=== PATIENT | male | born 1950 | race Caucasian/White ===

== ENCOUNTER 2016-07-23 09:45 | Day surgery (SDC) | payer OTHER ==
[~2016-07-23] VITALS: Ht 177.8 cm; Wt 100.0 kg
[~2016-07-23 09:45] MED LIST: 0.9% Sodium Chloride 1,000 ML IV SCH; ESOM40CA53 PO; LOVA40TA PO; Sodium Chloride LOK Flush 10 mL Syringe IV PRN; fentaNYL-PF 50 mCg/mL 2 mL Inj IVPUSH PRN
[2016-07-23] MEDS ORDERED: ASPI-973 PO (10:44)
[2016-07-23 10:52] VITALS: BP 150/90; PULSE 73; RESP 14; O2SAT 95
[2016-07-23 12:31] VITALS: BP 128/71; PULSE 69; RESP 14; O2SAT 95
[2016-07-23 12:51] VITALS: BP 120/72; PULSE 77; RESP 14; O2SAT 97
[2016-07-23 12:56] VITALS: BP 120/72; PULSE 77; RESP 14; O2SAT 94
--- NOTE | 2016-07-23 13:38 | ENDO ---
[address] [address] ENDOSCOPY PROCEDURE PATIENT: GODFREY MCCARTHY : 1950 MR#: [id number] ADMIT: 07/23/2016 JOB ID: [id number] PROCEDURE: EGD. INDICATION: Epigastric pain. Patient's ASA classification is II. Mallampati score is II. MEDICATIONS: Versed 7 mg, fentanyl 150 mcg. INSTRUMENT USED: GIF-H180J. PROCEDURE DETAILS: After informed consent was obtained, the patient was brought into the GI suite, where he was placed on oxygen via nasal cannula and monitored with continuous pulse oximeter, telemetry, and blood pressure monitoring. A time-out was performed. Then, he was placed in the left lateral decubitus position and medications were administered for sedation. A bite block was placed. Standard EGD scope was inserted through the bite block and advanced under direct visualization to the second portion of the duodenum without difficulty. FINDINGS: 1. Normal-appearing duodenal bulb, first and second portion. Multiple random biopsies were obtained. 2. Normal-appearing pylorus and antrum. In the gastric body, there were multiple polyps ranging in size from diminutive to approximately 6-7 mm. Polyp appearance was consistent with fundic gland polyps. The largest polyp was biopsied. Retroflexed views in the gastric body revealed a normal-appearing cardia and fundus. A hiatal hernia was appreciated. 3. The diaphragmatic hiatus was at approximately 40 cm. At 37 cm was the squamocolumnar junction. Arising approximately 1 cm from that was a tongue of salmon-colored mucosa to 36 cm, suggestive of Guan's. Multiple biopsies were obtained. The remainder of the esophagus otherwise unremarkable. IMPRESSION: 1. Multiple gastric body polyps, appearance consistent with fundic gland polyps. 2. Hiatal hernia. 3. Irregular gastroesophageal junction suggestive of Guan's. RECOMMENDATIONS: Await biopsy results. Continue PPI daily. Reflux precautions. Proceed to colonoscopy. PROCEDURE PERFORMED: Colonoscopy. INDICATION: Blood in the stool. Please see above for ASA classification, Mallampati score, and medications. INSTRUMENT USED: PCF-H180AL. Prep quality was good. PROCEDURE DETAILS: After completion of the EGD exam, the patient was turned and then a digital rectal exam was performed, which was limited secondary to unable to being able to palpate the prostate. Once rectal exam was completed, the colonoscope was inserted into the rectum and advanced under direct visualization to the cecum, which was identified by the presence of the ileocecal valve and appendiceal orifice. Once cecum was reached, the colonoscope was withdrawn back into the rectum as mucosa and lumen were examined. In the rectum, retroflexion was performed. Following retroflexion, remaining air in the rectum was suctioned, and procedure was completed. FINDINGS: 1. In the transverse colon, there was a diminutive polyp that was removed with cold biopsy forceps. 2. In the distal rectum, there was an approximately 3-4 mm sessile polyp that was removed with a cold snare. 3. Small internal hemorrhoids were noted as the colonoscope was withdrawn through the anal canal. IMPRESSION: 1. Transverse colon polyp. 2. Rectal polyp. 3. Internal hemorrhoids. RECOMMENDATIONS: 1. Continue MiraLAX daily. 2. Increase dietary fiber. 3. If bleeding should restart, consider trial of Anusol suppositories. COMPLICATIONS: None. ESTIMATED BLOOD LOSS: Less than 5 mL.
--- NOTE | 2016-07-24 17:41 | PATH ---
SURGICAL PATHOLOGY Attending Physician:Abbey Forman CASE STATUS: Signed Out PATIENT NAME: GODFREY MCCARTHY PID: [id number] : 1950 DATE COLLECTED:07/23/2016 22:42 SPECIMEN: 1: Duodenum, Biopsy 2: Gastric, Biopsy 3: Stomach, Polyp, Biopsy 4: Esophagus, Biopsy 5: Colon, Biopsy 6: Rectum, Biopsy CLINICAL HISTORY: 1). DUODENAL BIOPSY 2). GASTRIC BIOPSY 3). GASTRIC BODY POLYP BIOPSY 4). DISTAL ESOPHAGUS BIOPSY 5). TRANSVERSE COLON POLYP 6). RECTAL POLYP FINAL DIAGNOSIS: 1.DUODENUM BIOPSY: Duodenal mucosa with no diagnostic abnormality. Negative for active inflammation, features of sprue, dysplasia, and malignancy. 2.GASTRIC BIOPSY: Portions of fundic gland polyp. 3.GASTRIC BODY POLYP BIOPSY: Portions of gastric body-type mucosa with no diagnostic abnormality. No Helicobacter organisms identified by H&E stain. Negative for intestinal metaplasia, dysplasia, and malignancy. 4.DISTAL ESOPHAGUS BIOPSY: Squamocolumnar junctional mucosa with specialized intestinal metaplasia, consistent with Guan's esophagus. Negative for dysplasia and malignancy. 5.TRANSVERSE COLON POLYP: Polypoid portions of colorectal mucosa x2. Additional levels pending; results will be reported as an addendum. 6.RECTAL POLYP: Hyperplastic polyp. ICD10 K63.5 GROSS DESCRIPTION: The specimen is received in six formalin filled containers labeled with the patient's name. 1). The specimen is sublabeled "duodenal" and consists of 4 portions of tissue which aggregate to 0.3 x 0.3 x 0.2 CM. The specimen is entirely submitted in cassette 1A. 2). The specimen is sublabeled "gastric" and consists of 2 portions of tissue which aggregate to 0.3 x 0.3 x 0.3 CM. The specimen is entirely submitted in cassette 2A. 3). The specimen is sublabeled "gastric body" and consists of a 0.5 x 0.3 x 0.2 CM portion of tissue which is entirely submitted in cassette 3A. 4). The specimen is sublabeled "distal esophagus" and consists of 2 portions of tissue which aggregate to 0.3 x 0.2 x 0.2 CM. The specimen is entirely submitted in cassette 4A. 5). The specimen is sublabeled "transverse colon polyp" and consists of 2 portions of tissue which aggregate to 0.3 x 0.2 x 0.2 CM. The specimen is entirely submitted in cassette 5A. 6). The specimen is sublabeled "rectal polyp" and consists of a 0.3 x 0.2 x 0.2 CM portion of tissue which is entirely submitted in cassette 6A. 07/24/2016 DAC MICRO DESCRIPTION: See diagnosis. ICD-9 CODES: CPT CODES: 1: 16975 2: 13936 3: 70867 4: 39557 5: 19695 6: 44984 PROCEDURE/ADDENDA: Immunohistochemistry SPI Interpretation {Not Entered} Results-Comments Additional microscopic levels were performed on specimen 5. The levels show benign colonic mucosa with no dysplasia or malignancy. No serrated or adenomatous polyp features are identified. ADDENDUM DIAGNOSIS (Part 5, Transverse colon polyp): Benign colonic mucosa consistent with polypoid redundancy. Negative for dysplasia and malignancy. Electronically Signed Out Livia Castañeda MD Electronically Signed Out Rosita Gonzalez MD [facility] [address], [place] [address] Technical component performed at [facility], [address], [place], [address]
== END 2016-07-23 23:59 | disposition home or self-care (01) ==
LOC: END 09:45
PROVIDERS: ATTEND Internal Medicine Gastroenterology
DX: K92.1 Melena (principal); K59.00 Constipation, unspecified; K63.5 Polyp of colon; K62.1 Rectal polyp; K64.8 Other hemorrhoids; K31.7 Polyp of stomach and duodenum; R10.13 Epigastric pain; K44.9 Diaphragmatic hernia without obstruction or gangrene; K21.9 Gastro-esophageal reflux disease without esophagitis; G47.33 Obstructive sleep apnea (adult) (pediatric)
CPT/HCPCS: 43239; 45380; 45385; 99153; G0500; J2250; J3010; J7030